=== PATIENT | female | born 1960 | race Caucasian/White ===

== ENCOUNTER 2017-09-17 18:52 | Emergency (ER) | payer BC ==
[~2017-09-17] VITALS: Ht 170.2 cm; Wt 108.9 kg
[~2017-09-17 18:52] MED LIST: CALCIUM; CENTRUM SILVER1 EAC3 PO; CIPRO500 MG PO; DOXYCYCLINE 10100 M1 PO; FENOFIBRATE160 MG PO; HI-CAL500 MG PO; LEXAPRO 10 MG T10 MG PO; LISINOPRIL; PHENAZOPYRIDIN200 M2 PO; VITAMIN D; VITAMIN D35000 UNI1 PO; ZESTRIL10 MG PO; ZYRTEC10 M2 PO; [UNRECOGNIZED DRUG - OTHER] PO; [UNRECOGNIZED DRUG - OTHER] PO
[2017-09-17] MEDS ORDERED: FLONASE 0.05%50 MCG NASAL (19:04)
[2017-09-17] MEDS ORDERED: HYDROCODONE-AP1 EAC6 PO (20:57)
[2017-09-17] MEDS ORDERED: DOXYCYCLINE 10100 MG PO (20:57)
[2017-09-17 21:22] VITALS: BP 147/87
--- NOTE | 2017-09-19 14:04 | S ---
[place] [address] SURGICAL PATH RPT PROCEDURE Name: MORENA JAQUEZ Room: [facility]#: [id number] Admission: 09/17/17 Date of : 60 Discharge: 09/17/17 Report #: [id number] Path Case #: [id number] PATHOLOGY REPORT COLLECTION DATE: 09/17/2017 RECEIVED DATE: 09/18/2017 SUBMITTING PHYS: Dr. Lila Verduzco OTHER PHYS: Dr. Brian Mcgrath SPECIMEN(S) RECEIVED: A.Cyst from back * * * * * * * * * * * * FINAL DIAGNOSIS: Cyst from back: - Epidermal inclusion cyst. (EMILY:db; 09/19/2017) PATHOLOGIST: Barry Snell M.D. REPORT ELECTRONICALLY SIGNED BY: Barry Snell M.D. DATE/TIME: 09/19/2017 14:03 * * * * * * * * * * * * GROSS PATHOLOGY: The specimen is received in formalin, labeled "Morena Jaquez, cyst from back," is a ruptured cyst consisting of multiple fragments measuring 2.0 x 1.5 x 0.5 cm in aggregate dimensions. The cyst contains pale white-stiles soft amorphous material. The specimen is entirely submitted in cassette A1. (SDY; 09/18/2017) CLINICAL HISTORY: Cyst from back INITIAL CPT CODE(S): A; 82478 Professional services performed by [facility] at [facility], [facility] [place] [address]. Technical services performed by [facility] at [address] [place] [address], [address], [place] [address]. [facility] [id number] [place] [id number] SURGICAL PATH RPT PROCEDURE Name: MORENA JAQUEZ Room: [facility]#: [id number] Admission: 09/17/17 Date of : 60 Discharge: 09/17/17 Report #: [id number] Path Case #: [id number] PHONE: [phone] DIRECTOR: Blayne Barahona M.D. * * * END OF REPORT * * *
== END 2017-09-17 21:24 | disposition home or self-care (01) ==
LOC: M.ERS 18:52
DX: M54.6 Pain in thoracic spine (principal); I10 Essential (primary) hypertension; E78.5 Hyperlipidemia, unspecified; F10.99 Alcohol use, unspecified with unspecified alcohol-induced disorder; Z98.890 Other specified postprocedural states

== ENCOUNTER 2018-05-10 11:18 | Emergency (ER) | payer BC ==
[~2018-05-10] VITALS: Ht 170.2 cm; Wt 95.3 kg
[~2018-05-10 11:18] MED LIST changes: +DOXYCYCLINE 10100 MG PO; +FLONASE 0.05%50 MCG NASAL; +HYDROCODONE-AP1 EAC6 PO
[2018-05-10 13:01] VITALS: BP 179/91
== END 2018-05-10 13:02 | disposition home or self-care (01) ==
LOC: M.ERS 11:18
DX: M27.3 Alveolitis of jaws (principal); I10 Essential (primary) hypertension; E78.5 Hyperlipidemia, unspecified; Z85.038 Personal history of other malignant neoplasm of large intestine; Z90.49 Acquired absence of other specified parts of digestive tract; Z90.89 Acquired absence of other organs